=== PATIENT | male | born 1975 | race Caucasian/White ===

== ENCOUNTER 2016-05-31 13:16 | Emergency (ER) | payer MEDICAID ==
[~2016-05-31] VITALS: Ht 175.3 cm; Wt 100.0 kg
[2016-05-31] MEDS ORDERED: MORPHINE SULFATE 4 MG/ML CPJ (NOT FOR IM USE) IV ONE (14:15)
[2016-05-31 14:46] LABS: CLARITY URINE CLEAR (CLEAR); COLOR URINE YELLOW (YELLOW); GLUCOSE URINE NEGATIVE (NEGATIVE); KETONES URINE NEGATIVE (NEGATIVE); LEUKOCYTE ESTERASE URINE NEGATIVE (NEGATIVE); NITRITE URINE NEGATIVE (NEGATIVE); OCCULT BLOOD URINE NEGATIVE (NEGATIVE); PH URINE 5.5 (4.5-8.0); PROTEIN URINE NEGATIVE (NEGATIVE); SPECIFIC GRAVITY URINE 1.014 (1.005-1.030); UROBILINOGEN URINE 0.2 E.U./dL (0.2-1.0)
[2016-05-31 17:19] VITALS: BP 128/68
== END 2016-05-31 17:20 | disposition home or self-care (01) ==
LOC: ER 14:48
DX: N50.89 Other specified disorders of the male genital organs (principal); R10.30 Lower abdominal pain, unspecified; N50.811 Right testicular pain; H91.3 Deaf nonspeaking, not elsewhere classified
CPT/HCPCS: 74176; 76870; 81003; 87086; 93976; 96374; 99285; J2270; Z7610